=== PATIENT | female | born 1935 | race Caucasian/White ===

== ENCOUNTER 2018-10-06 14:13 | Emergency (ER) | payer OTHER ==
[~2018-10-06] VITALS: Ht 162.6 cm; Wt 61.2 kg
[~2018-10-06 14:13] MED LIST: ACCUPRIL40 MG PO; ALEVE220 M1 PO; AMLODIPINE BESYL5 MG PO; CALCIUM 600+D1 EAC5 PO; CECLOR500 MG PO; ESTRACE2 MG PO; EXCEDRIN ASA F1 EAC1; EXCEDRIN CAPLE1 EACH; FUROSEMIDE 20 M20 M1 PO; KEFLEX500 MG PO; LOW DOSE ASPIRI81 M1 PO; OMEGA-31000 M1 PO; PRILOSEC 10MG C10 M1 PO
[2018-10-06] MEDS ORDERED: SINEMET 25-1001 EAC1 PO (14:26)
[2018-10-06] MEDS ORDERED: LASIX 20 MG TAB20 MG PO (14:27)
[2018-10-06] MEDS ORDERED: QUINAPRIL HCL40 MG PO (14:28)
[2018-10-06] MEDS ORDERED: ANTIVERT25 MG PO (14:28)
[2018-10-06] MEDS ORDERED: UNICOMPLEX M TA1 TA1 PO (14:32)
[2018-10-06] MEDS ORDERED: CO Q-10100 MG PO (14:34)
[2018-10-06] MEDS ORDERED: VITAMIN D5000 UNIT PO (14:34)
[2018-10-06 14:47] LABS: ABSOLUTE NEUTROPHILS 4.8 thou/uL (1.4-8.2); BASOPHILS 0.8 % (0.0-2.0); EOSINOPHILS 1.7 % (0.0-3.0); HEMATOCRIT 39.2 % (37.0-47.0); HEMOGLOBIN 13.1 gm/dL (12.0-15.0); LYMPHOCYTES 34.1 % (24.0-44.0); MCH 31.4 pg (26.0-34.0); MCHC 33.3 g/dL (28.0-37.0); MCV 94.3 fL (80.0-100.0); MONOCYTES 6.8 % (1.0-8.0); PLATELET COUNT 225 thou/uL (150-400); POLYS 56.6 % (36.0-66.0); RBC 4.16 mil/uL (4.20-5.00); RDW 13.9 % (10.5-14.5); WBC 8.4 thou/uL (4.0-11.0)
[2018-10-06 14:52] LABS: CALCIUM 9.4 mg/dL (8.5-10.1); CREATININE 1.5 mg/dL (0.6-1.0); POTASSIUM 4.2 mmol/L (3.5-5.1)
[2018-10-06 15:00] LABS: ALBUMIN 3.9 g/dL (3.4-5.0); TOTAL BILIRUBIN 0.6 mg/dL (<0.1-1.0); TOTAL PROTEIN 7.5 g/dL (6.4-8.2)
[2018-10-06] MEDS ORDERED: VALACYCLOVIR1000 MG PO (15:35)
[2018-10-06] MEDS ORDERED: PREDNISONE 20 M20 MG PO (15:35)
[2018-10-06 15:42] VITALS: BP 193/77
--- NOTE | 2018-10-06 17:04 | EKG ---
[place] [address] [employer] [address] ELECTROCARDIOGRAM REPORT Name: MYESHA GERARDO Room #: DEP Yhaaira#: [id number] ������������������ Admission: 10/06/18 ������������������ Attend Phys: Discharge: 10/06/18 ������������������ Date of : 31 Report #: [id number] ����������������������������������������������������������������� [id number] THIS REPORT FOR: //name// [facility] ED Test Date: 2018-10-06 Test Time: 14:41:55 Pat Name: MYESHA GERARDO Department: Room: Gender: F Medical Assistant Cardiology: : 1935 Requested By: Ranjan Motta Order Number: [id number] MD: Brady Ryan Measurements Intervals [place] Rate: 62 P: 47 [place]: 190 QRS: 7 QRSD: 85 T: 43 QT: 418 QTc: 425 Interpretive Statements Sinus rhythm Abnormal R-wave progression, early transition No previous ECG available for comparison Electronically Signed On 10-06-2018 17:03:56 CDT by Brady Ryan [email or web address] ��������������������������������������������� <ELECTRONICALLY SIGNED> ���������������������������������������� By: Brady Ryan MD, [facility] ��������������������������������������������� 10/06/18 1703 1441 1441 Brady Ryan MD, FACC /EPI
== END 2018-10-06 15:43 | disposition home or self-care (01) ==
LOC: ER 14:13
PROVIDERS: Emergency Medicine
DX: G51.0 Bell's palsy (principal); I10 Essential (primary) hypertension; G20 Parkinson's disease; Z90.49 Acquired absence of other specified parts of digestive tract; Z90.710 Acquired absence of both cervix and uterus

== ENCOUNTER 2020-11-14 03:11 | Inpatient (IN) | payer OTHER ==
[~2020-11-14] VITALS: Ht 162.6 cm; Wt 57.2 kg
--- NOTE | ~2020-11-14 | EMS ---
[facility] [address] [place] [address] EMS Patient Care Report Name: MYESHA GERARDO Room #: 358-P ADM IN M.R.#: [id number] Admission: 11/14/20 Attend Phys: Arthur Lyon MD Discharge: Date of : 33 Report #: [id number] THIS REPORT FOR: //name// Report Transmitted: 11/15/2020 10:31 EMS Care Summary [place], [place] Incident [id number] @ 11/14/2020 02:25 Incident Location [address] Patient MYESHA GERARDO Female, 85 Years 1935 Patient Address [address] [place] [id number] Patient History Monson's-Palsy, Patient Allergies No known allergies, Patient Medications Gabapentin, Quinapril Hydrochloride, Atorvastatin, Aspirin, Estradiol, Miralax, Omeprazole, Furosemide, Meclizine, Chief Complaint CHEST PAIN Disposition Transported No Lights/[place] Dispatch Reason Chest Pain (Non-Traumatic) Transported To [facility] Narrative M42 ARRIVES TO FIND 85 Y/O F PT COMPLAINING OF RIGHT-SIDED CHEST PAIN WHICH SHE NOTICED WHEN SHE AWOKE AROUND 2:15 AM. [facility] [address] [place] [address] EMS Patient Care Report Name: MYESHA GERARDO Room #: 358-P [facility] IN Yahaira#: [id number] Admission: 11/14/20 Attend Phys: Arthur Lyon MD Discharge: Date of : 33 Report #: [id number] ASSESSMENTS AND TREATMENTS NOTED. PT MOVES TO COT VIA [id number]. PT MOVED TO AMBULANCE. PT TRANSPORTED. M42 ARRIVES AT DESTINATION. PT MOVED TO BED IN ROOM IN ED VIA DRAWSHEET METHOD. PT CARE TRANSFERRED. M42 RETURNS TO SERVICE. Initial Vitals @02:54P: 66,R: 18,BP: 182/73,Pain: 4/10,GCS: 15,CO: 7,SpO2: 96,Revised Trauma: 12, @02:39P: 70,R: 18,BP: 177/77,Pain: 4/10,GCS: 15,Glucose: 142,CO: 9,SpO2: 97,Revised Trauma: 12, Assessments @02:40MENTAL:Person Oriented,Time Oriented,Event Oriented,Place Oriented,SKIN:HEENT:LUNG SOUNDS:ABDOMEN:PELVIS//GI:EXTREMITIES:PULSE:NEURO:@03:00MENTAL:No Abnormalities,SKIN:No Abnormalities,HEENT:Head/Face: No Abnormalities,Eyes: No Abnormalities,Neck/Airway: No Abnormalities,LUNG SOUNDS:General: No Abnormalities,Left Upper: No Abnormalities,Right Upper: No Abnormalities,Left Lower: No Abnormalities,Right Lower: No Abnormalities,ABDOMEN:General: No Abnormalities,Left Upper: No Abnormalities,Right Upper: No Abnormalities,Left Lower: No Abnormalities,Right Lower: No Abnormalities,PELVIS//GI:No Abnormalities,EXTREMITIES:Left Arm: No Abnormalities,Right Arm: No Abnormalities,Left Leg: No Abnormalities,Right Leg: No Abnormalities,PULSE:NEURO:No Abnormalities, Impression Chest Pain / Discomfort Procedures @02:4212-Lead ECGResponse: UnchangedSucceeded@02:39ALS AssessmentResponse: UnchangedSucceeded@02:50Saline Lock 0cc (18 ga) Site: Antecubital-LeftResponse: UnchangedSucceeded@02:413-Lead ECGResponse: UnchangedSucceeded Timeline 02:23,Call Received 02:23,Dispatch Notified 02:25,Dispatched 02:26,En Route 02:33,On Scene 02:39,At Patient 02:39,ALS Assessment,Response: UnchangedSucceeded, 02:39,BP: 177/77 M,PULSE: 70,RR: 18 R,SPO2: 97 Ox,ETCO2: ,B,PAIN: 4,GCS: 15, 02:41,3-Lead ECG,Response: UnchangedSucceeded, 02:42,12-Lead ECG,Response: UnchangedSucceeded, 02:50,Saline Lock 0cc 18 ga Site: Antecubital-Left,Response: UnchangedSucceeded, [facility] [address] [place] [address] EMS Patient Care Report Name: MYESHA GERARDO Room #: 358-P [facility] IN M.R.#: [id number] Admission: 11/14/20 Attend Phys: Arthur Lyon MD Discharge: Date of : 33 Report #: [id number] 02:54,BP: 182/73 M,PULSE: 66,RR: 18 R,SPO2: 96 Ox,ETCO2: ,BG: ,PAIN: 4,GCS: 15, 03:00,Depart Scene 03:04,At Destination 03:16,Call Closed Disclaimer v1.1 Copyright 2020 [employer] This EMS Care Summary contains data elements from the applicable legal record (which may be displayed differently). It is designed to provide pertinent information for the following purposes: continuity of care, clinical quality, and state data reporting. The complete legal record is available to ED staff and administrators of the receiving hospital in [employer]'s Patient Tracker. All data is provided "as is."
[~2020-11-14 03:11] MED LIST changes: +CO Q-10100 MG PO; +LASIX 20 MG TAB20 MG PO; +MECLIZINE HCL25 MG PO; +PREDNISONE 20 M20 MG PO; +QUINAPRIL HCL40 MG PO; +SINEMET 25-1001 EAC1 PO; +UNICOMPLEX M TA1 TA1 PO; +VALACYCLOVIR1000 MG PO; +VITAMIN D5000 UNIT PO
[2020-11-14 03:23] VITALS: BP 159/71
[2020-11-14 05:11] LABS: ABSOLUTE NEUTROPHILS 10.8 thou/uL (1.4-8.2); BASOPHILS 0.9 % (0.0-2.0); EOSINOPHILS 0.9 % (0.0-3.0); HEMATOCRIT 32.5 % (37.0-47.0); HEMOGLOBIN 10.7 gm/dL (12.0-15.0); LYMPHOCYTES 14.6 % (24.0-44.0); MCH 30.2 pg (26.0-34.0); MCHC 32.8 g/dL (28.0-37.0); MCV 92.1 fL (80.0-100.0); MONOCYTES 8.1 % (1.0-8.0); PLATELET COUNT 262 thou/uL (150-400); POLYS 75.5 % (36.0-66.0); RBC 3.53 mil/uL (4.20-5.00); WBC 14.3 thou/uL (4.0-11.0)
[2020-11-14 05:12] LABS: URINE BILIRUBIN NEGATIVE (Negative); URINE BLOOD NEGATIVE (Negative); URINE CLARITY CLEAR; URINE COLOR YELLOW; URINE GLUCOSE-RANDOM* NEGATIVE (Negative); URINE KETONES NEGATIVE (Negative); URINE LEUKOCYTES-REFLEX NEGATIVE (Negative); URINE NITRITE-REFLEX NEGATIVE (Negative); URINE PROTEIN (DIPSTICK) NEGATIVE (Negative); URINE SPECIFIC GRAVITY <= 1.005 (1.005-1.035); URINE UROBILINOGEN 0.2 E.U./dl (0.2-1.0)
[2020-11-14 05:26] LABS: ANION GAP 9 mmol/L (7-16); BUN 38 mg/dL (7-18); CHLORIDE 102 mmol/L (98-107); CO2 27 mmol/L (21-32); CREATININE 1.8 mg/dL (0.6-1.0); GLUCOSE 125 mg/dL (74-106); POTASSIUM 3.9 mmol/L (3.5-5.1); SODIUM 138 mmol/L (136-145)
[2020-11-14 05:36] LABS: ALBUMIN 3.1 g/dL (3.4-5.0); SGOT 14 U/L (15-37); SGPT 12 U/L (14-59); TOTAL BILIRUBIN 0.3 mg/dL (0.2-1.0); TOTAL PROTEIN 7.2 g/dL (6.4-8.2); TROPONIN-I <0.06 ng/mL (<0.06)
--- NOTE | 2020-11-14 07:17 | EKG ---
[address] [place] [address] ELECTROCARDIOGRAM REPORT Name: MYESHA GERARDO Room #: 170-7 ADM IN M.R.#: [id number] Admission: 11/14/20 Attend Phys: Arthur Lyon MD Discharge: Date of : 33 Report #: [id number] [facility] ED Test Date: 2020-11-14 Test Time: 03:30:02 Pat Name: MYESHA GERARDO Department: Room: 170 Gender: F Wood Buffer: claudette : 1935 Requested By: Efraín Zuleta Order Number: [id number] : Anjel Kurtz Measurements Intervals [place] Rate: 59 P: 45 [place]: 183 QRS: 10 QRSD: 90 T: 38 QT: 403 QTc: 400 Interpretive Statements Sinus rhythm Anterior infarct, old Compared to ECG 10/06/2018 14:41:55 Myocardial infarct finding now present Electronically Signed On 11-14-2020 7:17:22 CDT by Anjel Kurtz [email or web address] <ELECTRONICALLY SIGNED> By: Anjel Kurtz MD, [facility] 11/14/20 0717 0330 0330 Anjel Kurtz MD, FACC /EPI
[2020-11-14] MEDS ORDERED: LIPITOR 20 MG T20 M1 PO (07:24)
[2020-11-14] MEDS ORDERED: NEURONTIN100 MG PO (07:25)
[2020-11-14 08:15] LABS: CHOLESTEROL 150 mg/dL (<200); HDL CHOLESTEROL 78 mg/dL (>40); LDL CHOLESTEROL 57 mg/dL (<100); TC:HDL 1.9 Ratio (Not establshd); TRIGLYCERIDE 75 mg/dL (<150); TROPONIN-I <0.06 ng/mL (<0.06); VLDL 15 mg/dL (<40)
[2020-11-14 09:35] VITALS: BP 145/72
[2020-11-14] MEDS ORDERED: TRAMADOL 50 MG50 MG PO (09:46)
[2020-11-14] MEDS ORDERED: EYE DROPS ADVAN15 ML EA. EYE (09:50)
--- NOTE | 2020-11-14 14:23 | 2DMMODE ---
[facility] [place] [address] 2 D/M-MODE ECHOCARDIOGRAM Name: MYESHA GERARDO Room #: 358-P ADM IN M.R.#: [id number] Admission: 11/14/20 Attend Phys: Arthur Lyon MD Discharge: Date of : 33 Report #: [id number] THIS REPORT FOR: cc: Niharika Gutierrze MD, J. Christopher MD Santiago, Patrick MD [facility] ~ APPROVED REPORT Study performed: 11/14/2020 13:31:07 EXAM: Comprehensive 2D, Doppler, and color-flow Echocardiogram Patient Location: Bedside Room #: 358 Status: routine BSA: 1.66 HR: 65 bpm BP: 145/72 mmHg Rhythm: NSR Other Information Study Quality: Good Indications Chest Pain Hypertension/HDD 2D Dimensions RVDd: 27.02 mm IVC: 14.00 mm Volumes Left Atrial Volume (Systole) Single Plane 4CH: 30.45 mL Single Plane 2CH: 41.30 mL LA ESV Index: 25.00 mL/m2 Aortic Valve AoV Peak Jesus.: 1.23 m/s AO Peak Gr.: 6.05 mmHg LVOT Max P.55 mmHg LVOT Max V: 1.07 m/s Mitral Valve E/A Ratio: 0.7 MV Decel. Time: 426.56 ms MV E Max Jesus.: 0.75 m/s [facility] [address] [employer] [address] [place] [address] 2 D/M-MODE ECHOCARDIOGRAM Name: MYESHA GERARDO Room #: 358-P [facility] IN [facility].#: [id number] Admission: 11/14/20 Attend Phys: Arthur Lyon MD Discharge: Date of : 33 Report #: [id number] A Jesus.: 1.10 m/s MV PHT: 123.70 ms IVRT: 110.73 ms Pulmonary Valve PV Peak Jesus.: 1.00 m/s PV Peak Gr.: 3.99 mmHg Pulmonary Vein P Vein S: 0.70 m/s P Vein A: 0.41 m/s P Vein D: 0.39 m/s P Vein A Dur.: 129.2 msec P Vein S/D Ratio: 1.79 Tricuspid Valve TR Peak Jesus.: 2.50 m/s TR Peak Gr.: 25.09 mmHg PA Pressure: 30.00 mmHg Left Ventricle The left ventricle is normal size. There is normal LV segmental wall motion. There is normal left ventricular wall thickness. The left ventricular systolic function is normal. The left ventricular ejection fraction is within the normal range. LVEF is 55-60%. Grade I - abnormal relaxation pattern. Right Ventricle The right ventricle is normal size. The right ventricular systolic function is normal. Atria The left atrium size is normal. The right atrium size is normal. Aortic Valve The aortic valve is normal in structure. No aortic regurgitation is present. There is no aortic valvular stenosis. Mitral Valve The mitral valve is normal in structure. Mild mitral regurgitation. No evidence of mitral valve stenosis. Tricuspid Valve The tricuspid valve is normal in structure. There is mild tricuspid regurgitation. Estimated PAP 30 mmHg. There is no pulmonary hypertension. Pulmonic Valve [facility] [address] [employer] [address] [place] [address] 2 D/M-MODE ECHOCARDIOGRAM Name: MYESHA GERARDO Room #: 358-P [facility] IN [facility].#: [id number] Admission: 11/14/20 Attend Phys: Arthur Lyon MD Discharge: Date of : 33 Report #: [id number] The pulmonary valve is normal in structure. There is no pulmonic valvular regurgitation. Great Vessels The aortic root is normal in size. IVC is normal in size and collapses >50% with inspiration. Pericardium There is no pericardial effusion. <Conclusion> Normal left ventricular size/wall thickness Ejection fraction 60% Grade 1 diastolic dysfunction Normal right ventricular size/function Normal right ventricular size/function Normal atrial size Color-flow Doppler study was performed of the aortic/mitral/tricuspid/pulmonary valve Normal aortic valve structure and function Mild mitral/tricuspid valve insufficiency Pulmonary systolic pressure estimated at 30 mmHg Normal aortic root size No pericardial effusion <ELECTRONICALLY SIGNED> By: Anjel Kurtz MD, [facility] 11/14/20 1422 142 142 Anjel Kurtz MD, FACC /INF
[2020-11-14 15:30] VITALS: BP 131/66
[2020-11-14] MEDS ORDERED: NORVASC 2.5 MG2.5 M1 PO (15:38)
[2020-11-14 19:45] VITALS: BP 174/82
[2020-11-15 04:00] VITALS: BP 146/76
[2020-11-15 05:35] LABS: ABSOLUTE NEUTROPHILS 4.7 thou/uL (1.4-8.2); BASOPHILS 0.6 % (0.0-2.0); EOSINOPHILS 3.2 % (0.0-3.0); HEMATOCRIT 30.2 % (37.0-47.0); HEMOGLOBIN 9.8 gm/dL (12.0-15.0); LYMPHOCYTES 31.3 % (24.0-44.0); MCH 30.6 pg (26.0-34.0); MCHC 32.6 g/dL (28.0-37.0); MCV 93.7 fL (80.0-100.0); MONOCYTES 8.8 % (1.0-8.0); PLATELET COUNT 255 thou/uL (150-400); POLYS 56.1 % (36.0-66.0); RBC 3.22 mil/uL (4.20-5.00); RDW 15.2 % (10.5-14.5); WBC 8.3 thou/uL (4.0-11.0)
[2020-11-15 05:45] LABS: CALCIUM 8.7 mg/dL (8.5-10.1); CREATININE 1.3 mg/dL (0.6-1.0); POTASSIUM 4.2 mmol/L (3.5-5.1)
--- NOTE | 2020-11-15 05:56 | NUR ---
PROGRESS PT A/O X4 UP WITH SBA. VSS. LUNGS CLEAR ABDOMEN SOFT WITH ACTIVE BS. NO EDEMA NOTED. REPORTS PAIN IN RIGHT OCCIPUT THAT RADIATES TO HER JAW AND DOWN TO RIGHT BREAST, DENIES NEED FOR PAIN MEDICATION . WARM BLANKET APPLIED WITH RELIEF. PT SLEPT MOST OF SHIFT IVF TO RF INTACT WITH IVF'S INFUSING ORDERED. CONTINUE POC.
[2020-11-15 07:36] VITALS: BP 167/71
--- NOTE | 2020-11-15 11:24 | NUR ---
INITIAL ASSESSMENT: Received consult for discharge planning. SW reviewed chart and spoke with nursing and attending physician. Pt was admitted from [facility] due to chest pain. Pt is on IV abx. PT/OT evals have been ordered. SW met with pt at bedside. Introduced role of SW. Pt is alert/orientated x 4. Pt reports she lives alone in and apt at [facility]. Pt has a cane to use when she is outside of her apt. No hx of HH or post-acute placement. Pt's PCP is Dr. Pedro Pablo Gutierrez. Pt's goal is to return home with possible HH if needed. SW is following to assist as needed with discharge planning.
[2020-11-15 15:29] VITALS: BP 155/76
--- NOTE | 2020-11-15 18:44 | NUR ---
PT EXPECTS DISCHARGE TOMORROW. HAS NO FURTHER QUESTIONS ABOUT HER CARE. WOULD LIKE TO WALK WITH PHYSICAL THERAPY TOMORROW.
[2020-11-15 19:13] VITALS: BP 174/81
[2020-11-16 03:36] VITALS: BP 145/66
[2020-11-16 08:09] VITALS: BP 144/84
[2020-11-16] MEDS ORDERED: LEVOFLOXACIN500 MG PO (12:47)
[2020-11-16] MEDS ORDERED: ACETAMINOPHEN325 M1 PO (12:47)
[2020-11-16] MEDS ORDERED: NORVASC5 MG PO (12:47)
[2020-11-16] MEDS ORDERED: LASIX 20 MG TAB20 MG PO (12:47)
[2020-11-16 14:03] VITALS: BP 144/84
[2020-11-16 14:42] VITALS: BP 144/84
--- NOTE | 2020-11-16 15:02 | NUR ---
DISCHARGE NOTE: SW reviewed chart and spoke with nursing and attending physician. Pt is medically stable for discharge home today. Pt declines services and states she will do outpatient therapy at [facility]. Pt had plans in place to start outpatient therapy prior to admission. Pt to retutn to her [place] apt today. Pt's son to provide transportation home this afternoon. No SW discharge needs identified at this time, but is available to assist should needs arise.
--- NOTE | 2020-11-16 16:28 | NUR ---
DISCHARGE INSTRUCTIONS AND NEW MED INFO WENT THROUGH WITH PT AND HER SON. ALL BELONGINGS ARE WITH PT. I9VV AND TELE D/C. DENIES ANY QUESTIONS. PT WHEELED DOWN TO SON'S CAR.
== END 2020-11-16 15:17 | disposition home or self-care (01) | DRG 682 ==
LOC: ER 03:11 → 3W 05:24 → EROBS 05:24 → 3W 08:57
PROVIDERS: Emergency Medicine; Nurse Practitioner; ADMIT Hospitalist; ATTEND Hospitalist
DX: N17.0 Acute kidney failure with tubular necrosis (principal); J18.9 Pneumonia, unspecified organism; E44.1 Mild protein-calorie malnutrition; R07.89 Other chest pain; E86.0 Dehydration; D72.829 Elevated white blood cell count, unspecified; E78.5 Hyperlipidemia, unspecified; N18.9 Chronic kidney disease, unspecified; G20 Parkinson's disease; R53.81 Other malaise; Z60.2 Problems related to living alone; R63.4 Abnormal weight loss; E55.9 Vitamin D deficiency, unspecified; Z20.822 Contact with and (suspected) exposure to COVID-19; I12.9 Hypertensive chronic kidney disease with stage 1 through stage 4 chronic kidney disease, or unspecified chronic kidney disease; G89.29 Other chronic pain; M54.5 Low back pain; G51.0 Bell's palsy; Z68.21 Body mass index [BMI] 21.0-21.9, adult; Z90.710 Acquired absence of both cervix and uterus; Z90.49 Acquired absence of other specified parts of digestive tract; Z79.82 Long term (current) use of aspirin; Z79.899 Other long term (current) drug therapy; R09.1 Pleurisy
CPT/HCPCS: 10879

== ENCOUNTER 2021-05-20 11:23 | Inpatient (IN) | payer OTHER ==
[~2021-05-20] VITALS: Ht 152.4 cm; Wt 58.7 kg
--- NOTE | ~2021-05-20 | EMS ---
[facility] [address] [place] [address] EMS Patient Care Report Name: MYESHA GERARDO Room #: 201-P ADM IN M.R.#: [id number] Admission: 05/20/21 Attend Phys: Lewis Lizarraga MD Discharge: Date of : 33 Report #: [id number] THIS REPORT FOR: //name// Report Transmitted: 05/22/2021 10:33 EMS Care Summary [place], [place]/[facility] Incident [id number] @ 05/20/2021 10:55 Incident Location [address] Patient MYESHA GERARDO Female, 85 Years 1935 Patient Address [address] [place] [address] Patient History Urinary Tract Infection (UTI), Patient Allergies Other drug allergy, Patient Medications Unknown, Chief Complaint AMS Disposition Transported Lights/[place] Dispatch Reason Sick Person Transported To [facility] Narrative PT FOUND LYING SUPINE IN BED IN BEDROOM AT APT. P36 AND PTS FAMILY ON SCENE. ON M41 ARRIVAL PT APPEARS TO BE ACTIVELY SEIZING. P36 STATES THAT ON THEIR ARRIVAL PT WAS CONFUSED AND LETHARGIC AND THEN STARTED TO SEIZE JUST PRIOR TO M41 [facility] [address] [place] [address] EMS Patient Care Report Name: MYESHA GERARDO Room #: 201-P ADM IN M.R.#: [id number] Admission: 05/20/21 Attend Phys: Lewis Lizarraga MD Discharge: Date of : 33 Report #: [id number] ARRIVAL. PTS FAMILY STATES THAT PT HAS NO SZ HX TO THEIR KNOWLEDGE. PTS SZ STOPS APPROX ONE MINUTE AFTER M41 ARRIVAL AND PRIOR TO ANY INTERVENTIONS. PT MOVED TO STRETCHER AND AMBULANCE FOR EMERGENT TRANSPORT. PTS FAMILY ON SCENE STATES THAT PT HAS HAD NO RECENT TRAUMA THEY ARE AWARE OF. PTS FAMILY STATES THAT PT HAS NO COVID-19 CONCERNS THEY ARE AWARE OF. PT HAS NO VISIBLE TRAUMA. PT HAS NO MORE SZ ACTIVITY ENROUTE. NO CHANGES NOTED ENROUTE. Initial Vitals @11:12P: 95,R: 16,BP: 217/75,Pain: 4/10,GCS: 9,Glucose: 183,CO: 1,SpO2: 97,Revised Trauma: 11, @11:26P: 72,R: 16,BP: 78/72,GCS: 9,SpO2: 99,Revised Trauma: 10, Assessments @11:09MENTAL:Confused,SKIN:Hot,HEENT:Head/Face: No Abnormalities,LUNG SOUNDS:ABDOMEN:PELVIS//GI:No Abnormalities,EXTREMITIES:PULSE:NEURO:Seizures,@11:31 Impression Stroke Procedures @11:06 ALS Assessment Response: UnchangedSucceeded @11:08 Stretcher Response: Unchanged @11:12 IV Therapy - Saline Lock 0cc (18 ga) Site: Forearm-Left Response: UnchangedSucceeded @11:11 3-Lead ECG Response: UnchangedSucceeded @PTAOxygen FlowRate: 10 Device: Non Re-breather Mask (NRB) Response: UnchangedSucceeded Timeline SUBSTATION DESIGN DRAFTSPERSON,Oxygen FlowRate: 10 Device: Non Re-breather Mask (NRB) Response: UnchangedSucceeded, 10:53,Call Received 10:53,Dispatch Notified 10:55,Dispatched 10:55,En Route 11:04,On Scene 11:06,At Patient 11:06,ALS Assessment,Response: UnchangedSucceeded, 11:08,Stretcher,Response: Unchanged 11:11,3-Lead ECG,Response: UnchangedSucceeded, 11:12,IV Therapy - Saline Lock 0cc 18 ga Site: Forearm-Left,Response: UnchangedSucceeded, 11:12,BP: 217/75 M,PULSE: 95,RR: 16 R,SPO2: 97 Ox,ETCO2: ,B,PAIN: 4,GCS: 9, [address] [place] [address] EMS Patient Care Report Name: JOSE GERARDONE Room #: 201-P ADM IN M.R.#: [id number] Admission: 05/20/21 Attend Phys: Lewis Lizarraga MD Discharge: Date of : 33 Report #: [id number] 11:13,Depart Scene 11:17,At Destination 11:26,BP: 78/72 M,PULSE: 72,RR: 16 R,SPO2: 99 Ox,ETCO2: ,BG: ,PAIN: ,GCS: 9, 11:39,Call Closed Disclaimer v1.1 Copyright 2021 [employer] This EMS Care Summary contains data elements from the applicable legal record (which may be displayed differently). It is designed to provide pertinent information for the following purposes: continuity of care, clinical quality, and state data reporting. The complete legal record is available to ED staff and administrators of the receiving hospital in [employer]'s Patient Tracker. All data is provided "as is."
--- NOTE | ~2021-05-20 | EEG ---
[facility] [place] [address] ELECTROENCEPHALOGRAM Name: MYESHA GERARDO Room #: 201-P [facility] IN M.R.#: [id number] Admission: 05/20/21 Attend Phys: Lewis Lizarraga MD Discharge: Date of : 33 Report #: [id number] THIS REPORT FOR: //name// DATE OF SERVICE: 05/21/2021 This patient is being evaluated for altered mental status and seizure. EEG was done by placing the electrode by standard 10-20 system of electrode placement. Both referential and sequential montages were used for recording. Background activity in this patient's EEG is about 8 Hz and 15 microvolt. The patient went to sleep that is associated with bilateral slowing and vertex sharp waves. Photic stimulation is unremarkable. Throughout the record, no active epileptiform activity was noticed. IMPRESSION: This is an abnormal EEG because it is intermixed with theta range slowing throughout the record. There is a nonspecific abnormality which can occur with encephalopathy, effect of psychotropic medication, dementia, etc. No active epileptiform activity was noticed. Thank you very much for this referral. By: 1056 54 Lavell Campuzano MD /nt
--- NOTE | ~2021-05-20 | HC ---
[facility] [place] [address] CONSULTATION Name: MYESHA GERARDO Room #: 201-P ADM IN M.R.#: [id number] Admission: 05/20/21 Attend Phys: Lewis Lizarraga MD Discharge: Date of : 33 Report #: [id number] THIS REPORT FOR: cc: Niharika Gutierrez MD, J. Christopher MD Khosla, Parveen K. MD ~ DATE OF SERVICE: 05/21/2021 HISTORY OF PRESENT ILLNESS: An 85-year-old female patient whose records were reviewed. The patient was discussed with the granddaughter. The patient was discussed with Dr. Lizarraga who is the body painter looking after this patient. The patient was seen by [facility] yesterday. Those notes were reviewed. The patient lives by herself. Home health comes and they put the medications and the medicine fails. Her memory is going down from last couple of months. One time, she was admitted with urinary tract infections and at that time, she was confused, but did not have any seizure. At this time, she was admitted with lethargy and then she had 2 seizures. She was started on Keppra and she is on Keppra. She also got a dose of Dilantin in the Emergency Room. She did have a CT angio of the head and neck and that does not show any blockage or any acute abnormality. Some question of facial droop was noticed, but does not look like she had any prominent focal findings. REVIEW OF SYSTEMS: Indicate that she had a low-grade temperature when she came in. It looks like her GFR is 47 today and it was only 33 yesterday indicating that she probably had some dehydration. She is on Aricept, but no established diagnosis of dementia. She had a urinalysis, which was unremarkable, but white count was high at 11.9. She is on a medication, Ultram and that has been recently added as I understand. This is her 14-point review of system. PAST MEDICAL HISTORY: Negative for seizure, but is positive for encephalopathy, but looks like progressively decreasing memory and she is being treated as dementia with that reason. FAMILY HISTORY: Unremarkable. SOCIAL HISTORY: She drinks one alcoholic drink, but she does not do it every day. PHYSICAL EXAMINATION: She was alert. She had somewhat difficulty talking and had a difficult time understanding. She did have some repetition. Ultimately, she told me what month it is, but very difficult to do any further examination. Cranial nerve and neuromuscular examination was attempted. I do not see any gross focality, but again examination is not all that good. In fact, very suboptimal. She does not appear to have edema, cyanosis or jaundice. Her hearing and vision looks adequate. She does not have any respiratory difficulty. Blood pressure is 156/84, respirations 17, pulse is 77, temperature [address] [address] CONSULTATION Name: JOSE GERARDONE Room #: 201-P [facility] IN M.R.#: [id number] Admission: 05/20/21 Attend Phys: Lewis Lizarraga MD Discharge: Date of : 33 Report #: [id number] is 98.3. No respiratory difficulty was noted. LABORATORY DATA: White count is high at 11.9. GFR is better now. CT angiogram was reviewed. She has no thyroid mass or carotid bruit. IMPRESSION AND RECOMMENDATION: Seizures. I suspect this is in relation to her metabolic encephalopathy because she has some fever and being on Ultram, which is a highly epileptiform medication. She needs further workup to exclude any further etiology. She already had a CT angiogram done, which was unremarkable. I will get an EEG done and I will get an MRI done. I did not get an MRV done because they should have a good pictures of that on the CT angio. She is on Keppra. I am going to leave her on Keppra, but probably will cut back the dosage. I do not think she needs to be on 2 anticonvulsants until the EEG shows still active seizure activity. I discussed all of it with the granddaughter. I spent more than 50 minutes of time taking care of this patient today and majority was spent counseling and coordinating. By: 1005 51 Lavell Campuzano MD /emily
[~2021-05-20 11:23] MED LIST changes: +ACETAMINOPHEN325 M1 PO; +EYE DROPS ADVAN15 ML EA. EYE; +LEVOFLOXACIN500 MG PO; +LIPITOR 20 MG T20 M1 PO; +NEURONTIN100 MG PO; +NORVASC 2.5 MG2.5 M1 PO; +NORVASC5 MG PO; +TRAMADOL 50 MG50 MG PO
[2021-05-20 11:24] VITALS: BP 178/72
[2021-05-20 11:58] LABS: ABSOLUTE NEUTROPHILS 12.5 thou/uL (1.4-8.2); BASOPHILS 0.4 % (0.0-2.0); HEMATOCRIT 39.9 % (37.0-47.0); HEMOGLOBIN 12.7 gm/dL (12.0-15.0); LYMPHOCYTES 9.4 % (24.0-44.0); MCH 30.3 pg (26.0-34.0); MCHC 31.8 g/dL (28.0-37.0); MCV 95.1 fL (80.0-100.0); MONOCYTES 5.6 % (1.0-8.0); PLATELET COUNT 266 thou/uL (150-400); POLYS 84.6 % (36.0-66.0); RDW 14.7 % (10.5-14.5); WBC 14.7 thou/uL (4.0-11.0)
[2021-05-20 12:15] LABS: CALCIUM 9.5 mg/dL (8.5-10.1); CREATININE 1.5 mg/dL (0.6-1.0); POTASSIUM 3.6 mmol/L (3.5-5.1)
[2021-05-20 12:28] LABS: ALBUMIN 3.9 g/dL (3.4-5.0); TOTAL BILIRUBIN 0.9 mg/dL (0.2-1.0); TOTAL PROTEIN 7.4 g/dL (6.4-8.2)
[2021-05-20 13:03] LABS: APTT 22.1 Seconds (24.5-32.8); INR 1.03; PROTIME 11.2 Seconds (10.5-12.1)
[2021-05-20 13:04] LABS: URINE BILIRUBIN NEGATIVE (Negative); URINE BLOOD 1+ (Negative); URINE CLARITY CLEAR; URINE COLOR YELLOW; URINE GLUCOSE-RANDOM* TRACE (Negative); URINE KETONES NEGATIVE (Negative); URINE LEUKOCYTES-REFLEX NEGATIVE (Negative); URINE NITRITE-REFLEX NEGATIVE (Negative); URINE PROTEIN (DIPSTICK) 1+ (Negative); URINE SPECIFIC GRAVITY 1.015 (1.005-1.035); URINE UROBILINOGEN 0.2 E.U./dl (0.2-1.0)
[2021-05-20 13:34] LABS: BACTERIA-REFLEX None Seen /HPF (None Seen); CASTS None Seen /LPF (None Seen); CRYSTALS None Seen /LPF (None Seen); SQUAMOUS 0-3 Few /LPF (0-3); URINE RBC 1-2 Rare /HPF (NONE SEEN); URINE WBC-REFLEX 0-5 Rare /HPF (0-5)
[2021-05-20 14:02] LABS: HYPOCHROMASIA 2+; POIKILOCYTOSIS 3+; TARGET CELLS 2+
[2021-05-20 15:16] LABS: CSF GLUCOSE 85 mg/dL (40-70)
--- NOTE | 2021-05-20 16:02 | NUR ---
LEON GERARDO -[facility]- [phone]
[2021-05-20 16:16] LABS: CSF CLARITY CLEAR; CSF COLOR COLORLESS; CSF RBC 26 /mm3; CSF WBC 2 /mm3 (0-10)
[2021-05-20] MEDS ORDERED: GABAPENTIN100 MG PO (16:37)
[2021-05-20] MEDS ORDERED: FUROSEMIDE 20 M20 MG PO (16:37)
[2021-05-20] MEDS ORDERED: ARICEPT10 M1 PO (16:37)
[2021-05-20] MEDS ORDERED: MECLIZINE HCL25 M1 PO (16:38)
[2021-05-20] MEDS ORDERED: PRILOSEC OTC20 MG PO (16:38)
[2021-05-20] MEDS ORDERED: THERAGRAN-M PR1 EAC1 PO (16:38)
[2021-05-20] MEDS ORDERED: NORCO5 PO (16:38)
[2021-05-20] MEDS ORDERED: TRAMADOL 50 MG50 MG PO (16:39)
[2021-05-20] MEDS ORDERED: QUINAPRIL 20 MG20 MG PO (16:39)
[2021-05-21 05:19] LABS: HEMATOCRIT 36.5 % (37.0-47.0); HEMOGLOBIN 11.7 gm/dL (12.0-15.0); MCH 30.9 pg (26.0-34.0); MCHC 32.1 g/dL (28.0-37.0); MCV 96.2 fL (80.0-100.0); RBC 3.79 mil/uL (4.20-5.00); RDW 15.1 % (10.5-14.5); WBC 11.9 thou/uL (4.0-11.0)
[2021-05-21 05:20] LABS: CALCIUM 8.9 mg/dL (8.5-10.1); CREATININE 1.1 mg/dL (0.6-1.0); POTASSIUM 3.3 mmol/L (3.5-5.1)
--- NOTE | 2021-05-21 07:51 | EKG ---
[address] [place] [address] ELECTROCARDIOGRAM REPORT Name: PRECIOUS GERARDOHANNE Room #: 170-2 ADM IN M.R.#: [id number] Admission: 05/20/21 Attend Phys: Lewis Lizarraga MD Discharge: Date of : 33 Report #: [id number] [facility] ED Test Date: 2021-05-20 Test Time: 11:48:43 Pat Name: MYESHA GERARDO Department: Room: 170 Gender: F Nitriles Lab Technician: : 1935 Requested By: Darryl Khalil Order Number: [id number] : Anjel Kurtz Measurements Intervals [place] Rate: 101 P: -9 OR: 195 QRS: 9 QRSD: 78 T: 18 QT: 369 QTc: 479 Interpretive Statements Sinus tachycardia Compared to ECG 11/14/2020 03:30:02 Sinus rhythm no longer present Electronically Signed On 05-21-2021 7:51:23 ANATOMY PROFESSOR by Anjel Kurtz [email or web address] <ELECTRONICALLY SIGNED> By: Anjel Kurtz MD, [facility] 05/21/21 0751 1148 1148 Anjel Kurtz MD, FACC /EPI
[2021-05-21 09:12] VITALS: BP 156/84
--- NOTE | 2021-05-21 11:17 | NUR ---
Spoke w/ ST & Jas will come see pt at 1230 for speech eval
[2021-05-21 12:01] VITALS: BP 156/84
[2021-05-21 12:20] VITALS: BP 157/73
--- NOTE | 2021-05-21 12:46 | NUR ---
PT ORIENTED TO ROOM AND UNIT, BED LOW AND LOCKED, SIDE RAILS UPX3, CALL LIGHT IN REACH, TELE APPLIED, WILL CONTINUE TO ASSESS.
--- NOTE | 2021-05-21 12:56 | NUR ---
PT ADMITTED RELATED TO AMS AND SEIZURES. CM REVIEWED CHART AND SPOKE WITH CARE TEAM. CM CALLED AND SPOKE WITH PT'S SON CARRIE GERARDO THIS DAY. HE INDICATED THAT PT HAD BEEN LIVING AT [facility] SHIPPING COORDINATOR. HE INDICATED THAT TO HIS KNOWLEDGE PT HAD A CANE AND A WALKER FOR USE PRIOR TO ADMISSION. HE INDICATED THAT PT HAD DONE OP PT AND OT OVER AT [facility] IN THE PAST. HE REPORTED THAT PT HAD BEEN INDEPDENENT WITH [facility] SHIPPING COORDINATOR. PT'S DRANDAUGHTER LEON GERARDO ([phone] IS ALSO A GOOD CONTACT. CM INDICATED THAT NEUROLOGY HAD BEEN CONSULTED AND IT LOOKED LIKE AN LP AND MRI WERE TO BE DONE SON WAS AWARE. HE INDICATED THAT HE WOULD ANTICIPATE PT RETURNING TO HER [place] APARTMENT AT [facility] ONCE MEDICALLY STABLE. CM INDICATED THAT PT, OT, AND ST WERE ALL CONSULTED AND THAT CM AND CARE TEAM WOULD FOLLOW UP WITH HIM RECARDING POST ACUTE CARE NEEDS AND RECOMMENDATIONS. PT TRANSFERED TO 201 THIS AFTERNOON. PT'S SON WAS AWARE OF TRANSFER. CM FOLLOWING.
[2021-05-21] MEDS ORDERED: ARICEPT10 M1 PO (15:46)
[2021-05-21 16:34] VITALS: BP 165/70
[2021-05-21 20:17] VITALS: BP 209/89
[2021-05-21 23:36] VITALS: BP 178/76
[2021-05-22 03:11] VITALS: BP 155/73
[2021-05-22 03:26] LABS: HEMATOCRIT 32.4 % (37.0-47.0); HEMOGLOBIN 10.8 gm/dL (12.0-15.0); MCH 31.2 pg (26.0-34.0); MCHC 33.3 g/dL (28.0-37.0); MCV 93.7 fL (80.0-100.0); RBC 3.46 mil/uL (4.20-5.00); RDW 14.3 % (10.5-14.5); WBC 9.1 thou/uL (4.0-11.0)
[2021-05-22 03:43] LABS: CALCIUM 8.7 mg/dL (8.5-10.1); CREATININE 0.9 mg/dL (0.6-1.0)
--- NOTE | 2021-05-22 03:50 | NUR ---
RESTING QUIETLY WITHOUT COMPLAINTS. ASSIST TO REPOSITION NEEDED PATIENT DOES TURN SELF AT TIMES. BLOOD PRESSURE HIGH 209/89. LAST PM AND DAILY MEDS RESTARTED. BLOOD PRESSURE NOW 155/73. REMAINS ORIENTED TO SELF AND PLACE AT THIS TIME. CONTINUE TO ASSES CLOSELY.
[2021-05-22 03:53] LABS: POTASSIUM 2.8 mmol/L (3.5-5.1)
[2021-05-22 09:25] VITALS: BP 179/78
--- NOTE | 2021-05-22 12:00 | NUR ---
CM MET WITH PT THIS DAY. PTS SON CARRIE AT BEDSIDE. PTS SON INQUIRING ABOUT POSSIBLE REHAB ON DC. CM SPOKE TO [facility] WHO INDICATED THEY WOULD COME SEE PT THIS AFTERNOON. SON AWARE. SON ALSO GAVE COPIES OF [facility] DIRECTIVES. CM PLACED IN PT CHART. PT SON REQUESTING MEDICAL RECORDS BE SENT TO [facility]. PHI FORMS GIVEN TO PTS SON AND INSTRUCTED CAN GIVE TO MEDICAL RECORDS FOR RECORDS TO BE TRANSFERRED. SON VOICED UNDERSTANDING. WILL AWAIT THERAPY AND CONTINUE WITH DC PLANNING. CM FOLLOWING.
[2021-05-22 12:05] VITALS: BP 158/64
[2021-05-22 14:33] LABS: CALCIUM 9.1 mg/dL (8.5-10.1); CREATININE 1.1 mg/dL (0.6-1.0); POTASSIUM 3.7 mmol/L (3.5-5.1)
--- NOTE | 2021-05-22 17:29 | NUR ---
PT UP TO CHAIR TODAY TAKING IN GOOD PO. REHAB CONSULTED.
[2021-05-22 19:09] VITALS: BP 198/82
[2021-05-22 23:10] VITALS: BP 148/67
--- NOTE | 2021-05-23 03:07 | NUR ---
SLEPT PART OF SHIFT. TURNING SELF. PULLED IV OUT THIS SHIFT AND WAS RESTARTED. WORKING ON GOALS AND PLAN OF CARE FOR NOC. CONTINUE TO ASSES CLOSELY.
[2021-05-23 03:08] LABS: CALCIUM 9.2 mg/dL (8.5-10.1); CREATININE 0.9 mg/dL (0.6-1.0); POTASSIUM 3.4 mmol/L (3.5-5.1)
[2021-05-23 03:48] VITALS: BP 182/81
[2021-05-23 06:20] VITALS: BP 160/71
--- NOTE | 2021-05-23 06:58 | NUR ---
PATIENT HAS BEEN ACCEPTED FOR AN ACUTE REHAB STAY ON 5N. AUTHORIZATION PROCESS INITIATED ON 05/22/21 AND CLINICAL INFORMATION FAXED TO [facility] BY 0659 ON 05/23/21. WILL AWAIT [facility] RESPONSE. THANK YOU FOR THIS REFERRAL.
[2021-05-23 07:00] VITALS: BP 146/63
--- NOTE | 2021-05-23 13:39 | NUR ---
5N ACUTE INPATIENT REHAB SUBMITTED FOR INSURANCE AUTH YESTERDAY. AWAITING AUTH. CM FOLLOWING REGARDING DC PLANNING.
--- NOTE | 2021-05-23 14:09 | NUR ---
I have reviewed the documentation by DESTINY RODAS from 05/22/21 to 05/23/21 and I concur with it. ANGELIA GILLETTE, PT, DPT
--- NOTE | 2021-05-23 16:28 | NUR ---
VICE PRESIDENT RISK MANAGEMENT RECEIVED CALL FROM [facility] OFFERING PEER TO PEER FOR ACUTE REHAB AUTHORIZATION. DISCUSSED PEER TO PEER OPTION WITH RAD DAVILA, LIBRARY MANAGER WITH DR SALCIDO, AND PEER TO PEER OPTION DECLINED. UNABLE TO GIVE FURTHER EVIDENCE OF REHAB APPROPRIATENSS OTHER THAN WHAT HAD ALREADY BEEN SENT TO [facility]. D/C INSURANCE RATER INFORMED OF REHAB AUTHORIZATION DENIAL. THANK YOU FOR THIS REFERRAL.
[2021-05-23 16:30] VITALS: BP 183/87
--- NOTE | 2021-05-23 17:57 | NUR ---
PT IS AXOX2; KNOWS SELF AND THAT SHE IS IN THE HOSPITAL; AFTER BEING ASKED THIS AM ORIENTATION QUESTIONS, WILL REPEAT WHAT SHE WAS TOLD THIS AM FOR DAY/DATE. VSS, AFEBRILE, MED SURG. PT EVALED BY PT/OT; AWAITING FOR AUTH FOR REHAB. DR CORTES CONSULTED. POC IS TO FREQUENTLY ROUND, PT ATTEMPTS TO GET UP OUT OF BED. SON HAS BEEN AT BEDSIDE PERIODICALLY THROUGHOUT THE DAY. FALL PRECAUTIONS IN PLACE. NO CONCERNS AT THIS TIME.
[2021-05-23 19:34] VITALS: BP 177/75
[2021-05-23 23:20] VITALS: BP 181/88
--- NOTE | 2021-05-24 00:12 | NUR ---
1934: BP 177/75. NO HYDRALIZINE IV IN HOSPITAL. NOTIFIED [facility] ORDERS FOR COREG 6.25 X1, MED RECIEVED FROM PHARMACY AND GIVEN. 2319: RECHECK BP 181/88. NOTIFIED [facility] WIL[facility], ORDERS FOR HYDRALIZINE 50 MG PO AND GIVEN. CONTINUE TO ASSES CLOSELY.
[2021-05-24 04:15] VITALS: BP 182/85
[2021-05-24 07:14] VITALS: BP 135/67
--- NOTE | 2021-05-24 07:32 | NUR ---
0430 BLOOD PRESSURE REMAINS ELEVATED. NOTIFIED [employer]ER AND ORDRES RECIEVED FOR CLONIDINE. MED GIVEN
--- NOTE | 2021-05-24 13:39 | NUR ---
CHART REVIEWED AND DISCUSSED WITH CARE TEAM. CM MET WITH PT AND PTS SON CARRIE AT BEDSIDE THIS DAY. CM INFORMED SON PHYSICIAN COMPLETED PEER TO PEER R/T REAHB AUTH AND DENIED. SPENT SOME TIME EDUCATING SON ON DIFFERENCE BETWEEN SNF/REHAB AND CONSIDERATIONS TO WHY AUTH NOT APPROVED. CM SPOKE TO [facility] TO REQUEST HER EXEPERTISE IN HELPING EXPLAING TO PTS SON. PTS SON VOICED NO FURTHER QUESTIONS AFTER DISCUSSION. PT AND PTS SON AGREEABLE TO [facility]. INITIALLY THEY VOICED THEY WERE NOT IMPRESSED WITH BEING THERE BEFORE. A RESULT CM GAVE SNF LIST TO PTS SON. CM SPOKE TO [facility] WITH [facility] TO INQUIRE IF ACCEPTS PTS INS. DID NOT SEND A REFERRAL. CM SPOKE TO PTS SON REGARDING HIS AND PTS SNF CHOICE. IT WAS DECIDED THEY WOULD RETURN TO [facility] ONCE MEDICALLY STABLE TO DC. REFERRAL SENT TO [facility] AT [facility]. WILL F/U FOR ACCEPTANCE. CM WILL CONTINUE TO FOLLOW. AND PT REVIEWED
[2021-05-24 15:09] VITALS: BP 196/87
--- NOTE | 2021-05-24 15:42 | NUR ---
I have reviewed the documentation by BEN VANESSA from 05/24/21 to 05/24/21 and I concur with it. ANGELIA GILLETTE, PT, DPT
--- NOTE | 2021-05-24 18:42 | NUR ---
Pt has been A&0x2. Pt knows self and knows that she's in a hospital. Pt VS have been stable and pt has been afebrile. Hydralyzine PO has been ordered Q6H/PRN for SBP greater than 170 after pt BP was found to be elevated (197/82). Pt worked with PT and ambulated down hallway with walker and then switched to cane. Pt ambulated to BR with use of cane and standby assist. Pt sat in chair for about an hour. Son was at bedside and spoke with SW/CM about rehab placement. No complaints of pain. No current concerns. Continue to monitor.
[2021-05-24 20:44] VITALS: BP 165/61
[2021-05-25 05:29] VITALS: BP 159/82
[2021-05-25 07:00] VITALS: BP 153/77
--- NOTE | 2021-05-25 08:26 | 2DMMODE ---
[facility] [place] [address] 2 D/M-MODE ECHOCARDIOGRAM Name: MYESHA GERARDO Room #: 201-P ADM IN M.R.#: [id number] Admission: 05/20/21 Attend Phys: Lewis Lizarraga MD Discharge: Date of : 31 Report #: [id number] THIS REPORT FOR: cc: Niharika Gutierrez MD, J. Christopher MD Santiago, Patrick MD [facility] ~ APPROVED REPORT Study performed: 05/25/2021 07:41:37 EXAM: Comprehensive 2D, Doppler, and color-flow Echocardiogram Patient Location: Bedside Room #: 201 Status: routine BSA: 1.55 HR: 67 bpm BP: 159/82 mmHg Rhythm: NSR Other Information Study Quality: Adequate/Poor parasternal windows Indications Seizures, syncope. 2D Dimensions RVDd: 31.35 mm IVSd: 10.21 (7-11mm) LVDd: 44.46 mm PWd: 8.34 (7-11mm) LVDs: 29.93 (25-40mm) Left Atrium: 36.11 (27-40mm) Aortic Root: 29.44 mm Volumes Left Atrial Volume (Systole) Single Plane 4CH: 27.54 mL Single Plane 2CH: 38.65 mL LA ESV Index: 23.00 mL/m2 Aortic Valve AoV Peak Jesus.: 1.42 m/s AO Peak Gr.: 8.08 mmHg LVOT Max P.98 mmHg LVOT Max V: 1.00 m/s [facility] [address] [place] [address] 2 D/M-MODE ECHOCARDIOGRAM Name: MYESHA GERARDO Room #: 201-P [facility] IN M.R.#: [id number] Admission: 05/20/21 Attend Phys: Lewis Lizarraga MD Discharge: Date of : 31 Report #: [id number] Mitral Valve E/A Ratio: 0.9 MV Decel. Time: 246.84 ms MV E Max Jesus.: 0.92 m/s MV A Jesus.: 1.06 m/s MV PHT: 71.58 ms IVRT: 72.66 ms Pulmonary Valve PV Peak Jesus.: 0.96 m/s PV Peak Gr.: 3.69 mmHg Pulmonary Vein P Vein S: 0.87 m/s P Vein A: 0.46 m/s P Vein D: 0.44 m/s P Vein A Dur.: 103.8 msec P Vein S/D Ratio: 1.98 Tricuspid Valve TR Peak Jesus.: 2.84 m/s RAP Estimate: 5.00 mmHg TR Peak Gr.: 32.16 mmHg PA Pressure: 37.00 mmHg Left Ventricle The left ventricle is normal size. There is normal LV segmental wall motion. Moderate basal septal hypertrophy is present. Left ventricular systolic function is normal. LVEF is 55%. Mild diastolic dysfunction is present (impaired relaxation pattern). Right Ventricle The right ventricle is normal size. The right ventricular systolic function is normal. Atria The left atrium size is normal. The right atrium size is normal. Aortic Valve The aortic valve is poorly visualized; leaflets are calcified. Trace aortic regurgitation. There is no aortic valvular stenosis. Mitral Valve Mitral valve leaflets are mildly thickened. Mild mitral annular calcification. Moderate mitral regurgitation. Tricuspid Valve The tricuspid valve is normal in structure. Mild tricuspid [facility] [address] [place] [address] 2 D/M-MODE ECHOCARDIOGRAM Name: MYESHA GERARDO Room #: 201-P [facility] IN M.R.#: [id number] Admission: 05/20/21 Attend Phys: Lewis Lizarraga MD Discharge: Date of : 31 Report #: [id number] regurgitation. Estimated PAP is 37mmHg. Pulmonic Valve Pulmonic valve is not well visualized. Great Vessels The aortic root is normal in size. Ascending aorta is not well visualized. IVC is normal in size and collapses >50% with inspiration. Pericardium There is no pericardial effusion. <Conclusion> Normal left ventricle size with moderate basal hypertrophy Ejection fraction 55% Grade 1 diastolic dysfunction Normal right ventricle size/function Normal atrial size Aortic valve mildly calcified without stenosis Moderate mitral valve insufficiency Mild tricuspid valve insufficiency Pulmonary systolic pressure estimated 37 mmHg No pericardial effusion Normal aortic root size. <ELECTRONICALLY SIGNED> By: Anjel Kurtz MD, FACC 05/25/21825 5 5 Anjel Kurtz MD, [facility] /INF
--- NOTE | 2021-05-25 14:41 | NUR ---
ANTICIPATE PHYSICIAN WILL DEEM PT MEDICALLY STABLE TO DISCHARGE TODAY OR TOMORROW. AWAITING CONFIRMATION FROM [facility] FOR THE [facility]. FACILITY [facility] REPORTS THEY MOST LIKELY WILL ACCEPT AND AWAITING AUTH FOR INS. INFORMED [facility] WAIVING AUTH. CM FAXED [facility] LETTER INDICATING AUTH REQUIREMENTS ARE BEING SUSPENDED AT THIS TIME. ONCE DISCHARGED PLEASE FAX DC ORDERS AND SUMMARY TO [phone] AND CALL REPORT TO [phone]. AWAITING CONFIRMATION IF [facility] WILL PROVIDE TRANSPORT OR NOT. CM WILL UPDATES NOTES INDICATED. CM CONTINUE TO FOLLOW FOR DC PLANNING.
[2021-05-25 15:00] VITALS: BP 140/79
--- NOTE | 2021-05-25 19:04 | NUR ---
Pt A&02, forgeful and very pleasant. VS stable and afebrile. Son at bedside. Pt ambualted with son in hallway. Pt calls when needs assistance to walk to bathroom. No complaints of pain. No current concerns. Continue to monitor.
[2021-05-25 20:15] VITALS: BP 164/64
[2021-05-26 00:03] VITALS: BP 169/66
--- NOTE | 2021-05-26 02:35 | NUR ---
PT WAS TRANSFERRED T THE UNIT FROM CCU AT 2300 IN A STBALE CONDITION.PT ALERT,PLEASANTLY CONFUSED BUT EASILY REDIRECTABLE.UP WITH SBA TO THE BSC.PT DENIED PAIN SO FAR.FALL AND SX PREACUTIONS IN PLACE.CALL LIGHT WITHIN REACH.
[2021-05-26 07:44] VITALS: BP 173/73
[2021-05-26 16:25] VITALS: BP 171/69
--- NOTE | 2021-05-26 17:12 | NUR ---
Patient pleasant and easily redirectable this shift. Steady on feet but re-educated dehydration unit operator light; impulsive when needing to go to bathroom. Patient denies pain. No noted siezure activity. Bedrails padded with blankets but patient has been taking them off. Appetite is adequate. Patient denies further needs. Fall precautions remain in place.
[2021-05-26 20:10] VITALS: BP 184/67
--- NOTE | 2021-05-27 02:47 | NUR ---
ASSUMED PT CARE AT 1900.PT DENIED PAIN/N/V SO FAR.PT ALERTFORGETFUL AND PLEASANTLY CONFUSED.PT EASILY REDIRECTABLE.PT UP WITH CANE/SBA.PT ABLE TO MAKE HER NEEDS KNOWN.FALL AND SEIZURE PRECAUTIONS IN PLACE.CALL LIGHT WITHIN REACH.
[2021-05-27 08:40] VITALS: BP 178/87
[2021-05-27 16:31] VITALS: BP 129/65
[2021-05-27 19:27] VITALS: BP 132/58
--- NOTE | 2021-05-28 02:09 | NUR ---
PT ALERT TO SELF,PLACE AND TIME.SOME FORGETFULNESS AND CONFUSION.SHE IS SLIGHTLY UPPER [place].DENIES PAIN.NO SIGNS OF DISTRESS NOTED. SEIZURE PRECAUTION IN PLACE.FALL PREC IN PLACE,
[2021-05-28 08:23] VITALS: BP 155/76
--- NOTE | 2021-05-28 09:05 | NUR ---
ASSUMED CARE OF PT AT 0700 THIS MORNING. PT IS A/OX4 AND HAS NO COMPLAINTS. ASSESSMENTS ARE NOTED IN CHART AND OTHERWISE UNREMARKABLE. SEIZURE AND FALL PRECAUTIONS ARE IN PLACE. PT IS BEDREST STATUS. CALL LIGHT AND OTHER NEEDS ARE IN REACH. MEDS AND TX GIVEN NEEDED AND SCEDULED. WILL CONTINUE TO MONITOR AND NOTE ANY CHANGES.
--- NOTE | 2021-05-28 11:10 | NUR ---
Spoke with [facility] they are awaiting authorization from insurance.
--- NOTE | 2021-05-28 12:52 | NUR ---
I have reviewed the documentation by BEN VANESSA from 05/28/21 to 05/28/21 and I concur with it. ANGELIA GILLETTE, PT, DPT
--- NOTE | 2021-05-28 13:04 | NUR ---
Assess for length of stay. Admit with seizures and AMS which has resolved. Initially on puree diet, now upgraded to [facility] altered chopped and has order for ensure enlive. Has poor intake about 25-50% past week but drinking ensure. Wts are stable since November. Assess as low nutrition risk
[2021-05-28 16:01] VITALS: BP 166/72
[2021-05-28 20:37] VITALS: BP 169/83
--- NOTE | 2021-05-29 04:22 | NUR ---
ASSUMED PT CARE THIS PM. PT IS ALERT AND ORIENTED X3. PT IS NO COMPLIANT WITH THE USE OF CALL LIGHT. PT IS ON SEIZURE PRECAUTIONS. PT DID NOT C/O PAIN OR VERBALIZE ANY OTHER CONCERNS. MEDS WERE GIVEN PER EMAR ORDERS.PT IS ON RA. FALL PRECAUTIONS IN PLACE. NO VISIBLE OF DISTRESS NOTED. WILL CONTINUE TO MONITOR.
[2021-05-29 05:40] VITALS: BP 156/84
[2021-05-29 08:10] VITALS: BP 140/70
[2021-05-29 08:18] VITALS: BP 140/70
--- NOTE | 2021-05-29 09:11 | NUR ---
[facility] has auth. Notified phys and son. Arranging transport with [facility].
[2021-05-29] MEDS ORDERED: KEPPRA 500 MG500 M1 PO (10:35)
--- NOTE | 2021-05-29 11:29 | NUR ---
CARE FOR PATIENT TAKEN OVER THIS AM. AT THAT MOMENT NO COMPLAINTS OR CONCERNS. PATIENT ASSESSED AND ABLE TO AMBULATE TO BATHROOM WITH CANE AND STAND BY ASSIST FROM NURSE. AFTER SPEAKING WITH HAND HARDENER PATIENT WILL BE DISCHARGED TO FACILITY AND TRANSPORTATION IS SET UP FOR 1330. WILL CONTINUE TO MONITOR.
--- NOTE | 2021-05-29 14:07 | NUR ---
Patient to dc to [facility]. faxed orders. van transport for 1315. Patient agreeable, updated son no further needs.
== END 2021-05-29 13:22 | DRG 100 ==
LOC: ER 11:23 → 2N 16:13 → EROBS 16:13 → 2N 05-21 12:24 → 4S 05-25 23:25
PROVIDERS: Emergency Medicine; ADMIT Hospitalist; ATTEND Hospitalist
PROC: 009U3ZX Drainage of Spinal Canal, Percutaneous Approach, Diagnostic (ICD-10-PCS; principal; 2021-05-20)
DX: G40.909 Epilepsy, unspecified, not intractable, without status epilepticus (principal); A41.9 Sepsis, unspecified organism; G03.9 Meningitis, unspecified; N17.9 Acute kidney failure, unspecified; E87.0 Hyperosmolality and hypernatremia; G93.40 Encephalopathy, unspecified; E87.6 Hypokalemia; I10 Essential (primary) hypertension; E11.42 Type 2 diabetes mellitus with diabetic polyneuropathy; Z66 Do not resuscitate; K21.9 Gastro-esophageal reflux disease without esophagitis; F03.90 Unspecified dementia, unspecified severity, without behavioral disturbance, psychotic disturbance, mood disturbance, and anxiety; E78.5 Hyperlipidemia, unspecified; R53.81 Other malaise; G20 Parkinson's disease; F02.80 Dementia in other diseases classified elsewhere, unspecified severity, without behavioral disturbance, psychotic disturbance, mood disturbance, and anxiety; R13.10 Dysphagia, unspecified; Z20.822 Contact with and (suspected) exposure to COVID-19; Z79.899 Other long term (current) drug therapy; Z90.710 Acquired absence of both cervix and uterus; Z90.49 Acquired absence of other specified parts of digestive tract
CPT/HCPCS: 10081; 10102; 10797